=== PATIENT | male | born 1935 | race Caucasian/White ===

== ENCOUNTER 2017-03-30 18:47 | Emergency (ER) | payer MEDICARE ==
[2017-03-30] MEDS ORDERED: SULFAMETH/TRIMETH DS 800/160 MG TABLET PO STA (20:03)
[2017-03-30] MEDS ORDERED: SULFAMETH/TRIMETH DS 800/160 MG TABLET PO ONE ×2 (20:05→20:07)
== END 2017-03-30 20:16 | disposition home or self-care (01) ==
DX: L02.214 Cutaneous abscess of groin (principal)
CPT/HCPCS: 10060; 99283; A9270

== ENCOUNTER 2017-05-11 05:03 | Emergency (ER) | payer MEDICARE ==
[2017-05-11] MEDS ORDERED: FUROSEMIDE 40 MG/4 ML VIAL IVP STA (05:45)
--- NOTE | 2017-05-11 05:48 | ED Physician Documentation ---
PD HPI DYSPNEA - Stated complaint Stated Complaint: SHORTNESS OF BREATH - Chief complaint Chief Complaint: Resp - History obtained from History obtained from: Patient, Family - History of Present Illness Timing - onset: Last night Timing - onset during: Rest Timing - duration: Days (1) Timing - details: Gradual onset, Still present Inciting event(s): Other (has COPD and has had soa most of his life.) Improved by: Rest, Sitting up Worsened by: Exertion, Laying flat Associated symptoms: Bilateral edema (mild imprint to the sock). No: Fever, Cough, Hemoptysis, Wheezing, Chest pain / discomfort, Palpitations, Diaphoresis Similar symptoms before: Has not had sx before Recently seen: Not recently seen - Additional information Additional information: 81 y/o male with a history of COPD is generally non-compliant and does not see the doctor. He has developed shortness of breath and rapid heart rate and he notes that this is worse with laying down and he has had to sit up at the side of the bed at night to catch his breath. Review of Systems Constitutional: denies: Fever Eyes: denies: Decreased vision Ears: denies: Ear pain Nose: denies: Congestion Throat: denies: Sore throat Cardiac: reports: Palpitations, Pedal edema. denies: Chest pain / pressure, Calf pain Respiratory: reports: Dyspnea. denies: Cough, Wheezing GI: denies: Abdominal Pain, Nausea, Vomiting : denies: Dysuria, Frequency Skin: denies: Rash Musculoskeletal: denies: Neck pain, Back pain, Extremity pain Neurologic: denies: Generalized weakness, Focal weakness PD PAST MEDICAL HISTORY - Past Medical History Past Medical History: Yes Cardiovascular: None Endocrine/Autoimmune: None - Past Surgical History Past Surgical History: No - Present Medications Home Medications: Ambulatory Orders Medication Instructions Recorded Confirmed Furosemide [Lasix] 40 mg PO DAILY #20 tablet 05/11/17 - Allergies Allergies/Adverse Reactions: Allergies Allergy/AdvReac Type Severity Reaction Status Date / Time shellfish derived Allergy Anaphylaxis Verified 05/11/17 05:07 - Social History Does the pt smoke?: No Smoking Status: Never smoker Does the pt drink ETOH?: No Does the pt have substance abuse?: No - Immunizations Immunizations: TDAP >10years/unknown - POLST Patient has POLST: No PD ED PE NORMAL - Vitals Vital signs reviewed: Yes (tachy and hypertensive ) - General General: Alert and oriented X 3, No acute distress, Well developed/nourished - HEENT HEENT: Atraumatic, PERRL, EOMI - Neck Neck: Supple, no meningeal sign - Cardiac Cardiac: RRR, No murmur - Respiratory Respiratory: No respiratory distress, Other (end inspiratory crackles at the bases bilaterally ) - Abdomen Abdomen: Soft, Non tender - Back Back: No CVA TTP, No spinal TTP - Derm Derm: Normal color, Warm and dry, No rash - Extremities Extremities: No deformity, Other (edema is trace at best) - Neuro Neuro: No motor deficit, No sensory deficit - Psych Psych: Normal mood, Normal affect Results - Vitals Vitals: Vital Signs - 24 hr 05/11/17 05/11/17 05/11/17 05:07 05:27 05:56 Temperature 36.6 C Heart Rate 138 H 137 H 118 H Respiratory 21 21 20 Rate Blood Pressure 148/80 H 126/80 116/83 H O2 Saturation 95 94 94 05/11/17 05/11/17 06:29 06:55 Temperature Heart Rate 136 H 120 H Respiratory 13 25 H Rate Blood Pressure 139/87 H 117/65 O2 Saturation 97 96 Oxygen O2 Source Room air - EKG (time done) 0511 Rate: Rate (enter#) (137) Rhythm: Sinus tachycardia Intervals: Prolonged QT QRS: LVH Compare to prior EKG: Old EKG unavailable Computer interpretation: Agree with computer - Labs Labs: Laboratory Tests 05/11/17 05/11/17 05/11/17 05:20 05:20 05:20 WBC 6.3 RBC 4.51 L Hgb 14.6 Hct 43.8 MCV 97.1 H MCH 32.4 H MCHC 33.4 RDW 13.3 Plt Count 130 MPV 9.3 Neut # 4.4 Lymph # 1.3 L [place] # 0.6 Eos # 0.0 Baso # 0.0 Absolute Nucleated RBC 0.00 Nucleated RBCs 0.0 Sodium 139 Potassium 4.4 Chloride 104 Carbon Dioxide 27 Anion Gap 8.0 BUN 15 Creatinine 1.1 Estimated GFR (MDRD) 64 L Glucose 114 H Calcium 9.1 Total Bilirubin 2.2 H AST 39 ALT 58 Alkaline Phosphatase 52 Troponin I 0.05 B-Natriuretic Peptide Total Protein 6.5 L Albumin 4.2 Globulin 2.3 Albumin/Globulin Ratio 1.8 Lipase 18 L Urine Color Urine Clarity Urine pH Ur Specific [place] Urine Protein Urine Glucose (UA) Urine Ketones Urine Occult Blood Urine Nitrite Urine Bilirubin Urine Urobilinogen Ur Leukocyte Esterase Ur Microscopic Review Urine Culture Comments 05/11/17 05/11/17 05:20 06:14 WBC RBC Hgb Hct MCV MCH MCHC RDW Plt Count MPV Neut # Lymph # [place] # Eos # Baso # Absolute Nucleated RBC Nucleated RBCs Sodium Potassium Chloride Carbon Dioxide Anion Gap BUN Creatinine Estimated GFR (MDRD) Glucose Calcium Total Bilirubin AST ALT Alkaline Phosphatase Troponin I B-Natriuretic Peptide 515 H Total Protein Albumin Globulin Albumin/Globulin Ratio Lipase Urine Color YELLOW Urine Clarity CLEAR Urine pH 6.0 Ur Specific [place] 1.015 Urine Protein TRACE Urine Glucose (UA) NEGATIVE Urine Ketones NEGATIVE Urine Occult Blood NEGATIVE Urine Nitrite NEGATIVE Urine Bilirubin NEGATIVE Urine Urobilinogen 0.2 (NORMAL) Ur Leukocyte Esterase NEGATIVE Ur Microscopic Review NOT INDICATED Urine Culture Comments NOT INDICATED - Rads (name of study) 2 view chest Radiology: Prelim report reviewed (Impression: 1. No focal consolidation. 2. Mild cardiomegaly with pulmonary vascular congestion.), EMP read indepedently, See rad report Procedures - IVC sono (time) 0540 Bedside IVC sono: IVC measures (cm) (2.66), IVC collapsed c insp (cm) (2.52), High CVP, Fluid overload PD MEDICAL DECISION MAKING - ED course Complexity details: reviewed old records, reviewed results, re-evaluated patient , considered differential, d/w patient, d/w family ED course: 81 y/o non-compliant male with shortness of air has a plethoric IVC and rales on exam and he is given IV lasix. He has some diuressis and improvement in his dyspnea but remains tachy. IV diltiazem is ordered and he refuses. He is refusing hospitalization for new onset CHF. He does not have ischemic changes on his EKG and he is saturating well with no elevation in the trop. I suspect the failure is a result of untreated hypertension or simply the tachycardia. He insists on leaving AMA and he gives additional history that he has a reaction to diltiazem causing joint aches. I have asked him to consider an IV beta ayaan while he is here and he refuses this as well. Departure - Departure Disposition: Against Medical Advice Clinical Impression: Congestive heart failure Qualifiers: Congestive heart failure type: unspecified congestive heart failure type Congestive heart failure chronicity: acute Qualified Code(s): I50.9 - Heart failure, unspecified Condition: Fair Instructions: ED CHF General Follow-Up: Eugenia Maza ARNP [Primary Care Provider] - Prescriptions: Furosemide [Lasix] 40 mg PO DAILY #20 tablet Comments: Today it appears you have acute congestive heart failure and this is likely due the rapid heart rate and elevated blood pressure ongoing for too long. We have offered further treatment in the ED and hospitalization and you are refusing both. Follow up with your primary care doctor or return here if you worsen or decide you would like further treatment.
[2017-05-11] MEDS ORDERED: FUROSEMIDE 40 MG/4 ML VIAL ONE (05:50)
[2017-05-11 05:54] LABS: BASOPHILS % (AUTO) 0.2 %; EOSINOPHILS % (AUTO) 0.8 %; HCT - HEMATOCRIT 43.8 % (42.0-52.0); HGB - HEMOGLOBIN 14.6 g/dL (14.0-18.0); LYMPHOCYTES # (AUTO) 1.3 10^3/uL (1.5-3.5); MEAN CORPUSCULAR HEMOGLOBIN 32.4 pg (27.0-31.0); MEAN CORPUSCULAR HGB CONC 33.4 g/dL (32.0-36.0); MEAN CORPUSCULAR VOLUME 97.1 fL (80.0-94.0); MEAN PLATELET VOLUME 9.3 fL (7.4-11.4); MONOCYTES # (AUTO) 0.6 10^3/uL (0.0-1.0); MONOCYTES % (AUTO) 8.9 %; NEUTROPHILS # (AUTO) 4.4 10^3/uL (1.5-6.6); NEUTROPHILS % (AUTO) 70.1 %; RED BLOOD COUNT 4.51 10^6/uL (4.70-6.10); RED CELL DISTRIBUTION WIDTH 13.3 % (12.0-15.0); UNCORRECTED WHITE BLOOD COUNT 6.3 x10^3/uL; WHITE BLOOD COUNT 6.3 x10^3/uL (4.8-10.8)
[2017-05-11 06:12] LABS: ALBUMIN/GLOBULIN RATIO 1.8 (1.0-2.2); BILIRUBIN,TOTAL 2.2 mg/dL (0.2-1.0); CALCIUM 9.1 mg/dL (8.5-10.3); CREATININE 1.1 mg/dL (0.6-1.2); POTASSIUM 4.4 mmol/L (3.5-5.0); TOTAL PROTEIN 6.5 g/dL (6.7-8.2)
[2017-05-11 06:31] LABS: BILIRUBIN,URINE NEGATIVE (NEGATIVE)
[2017-05-11 06:39] LABS: UA CHARGE (STRIP ONLY) YES; UR CULTURE IF IND NOT INDICATED
--- NOTE | 2017-05-11 07:11 | XRAY Preliminary Report ---
Exam: XR Chest 2 View PA/LAT IMPRESSION: 1. No focal consolidation. 2. Mild cardiomegaly with pulmonary vascular congestion. [facility] SITE ID: [id number]
--- NOTE | 2017-05-11 07:14 | XRAY Report ---
EXAM: CHEST RADIOGRAPHY EXAM DATE: 05/11/2017 06:53 AM. CLINICAL HISTORY: Dyspnea, crackles . COMPARISON: Chest radiograph dated 10/18/2010. TECHNIQUE: 2 views. FINDINGS: Lungs/Pleura: No focal opacities evident. No pleural effusion. No pneumothorax. Normal volumes. Mediastinum: The heart is enlarged. The pulmonary vasculature is mildly indistinct. Other: None. IMPRESSION: 1. No focal consolidation. 2. Mild cardiomegaly with pulmonary vascular congestion. [facility] Referring Provider Line: [phone] SITE ID: [id number]
[2017-05-11] MEDS ORDERED: diltiaZEM INJ 5 MG/ML VIAL IVP STA (07:53)
[2017-05-11] MEDS ORDERED: diltiaZEM INJ 5 MG/ML VIAL ONE (08:00)
[2017-05-11 08:22] VITALS: BP 135/79
== END 2017-05-11 08:22 | disposition left against medical advice (07) ==
LOC: ED 05:03
DX: I50.9 Heart failure, unspecified (principal); J44.9 Chronic obstructive pulmonary disease, unspecified
CPT/HCPCS: 36415; 71020; 80053; 81001; 81003; 83690; 83880; 84484; 85025; 87086; 93005; 93010; 96374; 96375; 99285

== ENCOUNTER 2019-01-30 08:39 | Inpatient (IN) | payer MEDICARE ==
--- NOTE | 2019-01-30 09:47 | XRAY Report ---
Reason: short of air Procedure Date: 01/30/2019 Accession Number: [id number] / [id number] Procedure: XR - Chest 2 View X-Ray CPT Code: 50898 FULL RESULT: EXAM: CHEST RADIOGRAPHY EXAM DATE: 01/30/2019 09:29 AM. CLINICAL HISTORY: Short of air. COMPARISON: CHEST 2 VIEW PA/LAT 05/11/2017 6:22 AM. TECHNIQUE: 2 views. FINDINGS: Lungs/Pleura: No focal opacities evident. No pleural effusion. No pneumothorax. Normal volumes. Mediastinum: Cardiomegaly and mild calcification of the aortic arch, similar to 2017. Other: Unchanged appearance of a posterior paradiaphragmatic opacity, centrally lucent and approximately 4 cm in size and triangular in shape. Differential diagnosis includes paramediastinal mass, posterior diaphragmatic hernia and a pleural space process among others. IMPRESSION: Stable examination with no acute airspace disease. Stable posterior finding on the lateral radiograph. While this is not felt to be contributory to the patient's acute presentation, if clinically indicated this could be clarified on a routine basis by CT of the chest. [facility]
[2019-01-30] MEDS ORDERED: ALBUTEROL NEB 2.5 MG/3 ML INH STA ×2 (09:49→11:23)
[2019-01-30] MEDS ORDERED: METOPROLOL 5 MG/5 ML VIAL IVP STA (09:50)
[2019-01-30 10:22] LABS: BASOPHILS % (AUTO) 0.7 %; EOSINOPHILS % (AUTO) 0.4 %; HGB - HEMOGLOBIN 14.3 g/dL (14.0-18.0); LYMPHOCYTES # (AUTO) 0.7 10^3/uL (1.5-3.5); LYMPHOCYTES % (AUTO) 13.4 %; MEAN CORPUSCULAR HEMOGLOBIN 32.8 pg (27.0-31.0); MEAN CORPUSCULAR HGB CONC 33.7 g/dL (32.0-36.0); MEAN CORPUSCULAR VOLUME 97.3 fL (80.0-94.0); MEAN PLATELET VOLUME 9.4 fL (7.4-11.4); MONOCYTES # (AUTO) 0.5 10^3/uL (0.0-1.0); MONOCYTES % (AUTO) 9.6 %; NEUTROPHILS % (AUTO) 75.9 %; PLT - PLATELET COUNT 113 10^3/uL (130-450); RED BLOOD COUNT 4.37 10^6/uL (4.70-6.10); RED CELL DISTRIBUTION WIDTH 14.3 % (12.0-15.0); WHITE BLOOD COUNT 5.3 x10^3/uL (4.8-10.8)
[2019-01-30 10:28] LABS: ALBUMIN 4.6 g/dL (3.2-5.5); ALBUMIN/GLOBULIN RATIO 1.6 (1.0-2.2); BILIRUBIN,TOTAL 4.9 mg/dL (0.2-1.0); CREATININE 1.2 mg/dL (0.6-1.2); MAGNESIUM 2.1 mg/dL (1.7-2.8); TOTAL PROTEIN 7.4 g/dL (6.7-8.2)
[2019-01-30] MEDS ORDERED: FUROSEMIDE 40 MG/4 ML VIAL IVP STA (10:56)
[2019-01-30] MEDS ORDERED: PROCHLORPERAZINE 10 MG/2 ML VIAL IVP PRN (11:06)
[2019-01-30] MEDS ORDERED: MORPHINE 2 MG/ML CARPUJECT IVP PRN (11:06)
[2019-01-30] MEDS ORDERED: ACETAMINOPHEN 325 MG TABLET PO PRN (11:06)
--- NOTE | 2019-01-30 11:24 | ED Physician Documentation ---
PD HPI DYSPNEA - Stated complaint Stated Complaint: SOA - Chief complaint Chief Complaint: Resp - History obtained from History obtained from: Patient - History of Present Illness Timing - onset: How many months ago (1) Timing - onset during: Exertion Timing - duration: Months (1) Timing - details: Gradual onset, Still present (very dyspneic the past few days) Inciting event(s): No: URI (does have some cough chronically, and feeling wheezing. Also leg edema and orthopnea.) Improved by: Rest, Sitting up Worsened by: Exertion, Laying flat, Coughing Associated symptoms: Cough, Wheezing, Bilateral edema (for the past month). No: Fever Similar symptoms before: Has not had sx before (history of asthma but usually without MDi nor meds. No history of CAD/CHF) Recently seen: Not recently seen Review of Systems Constitutional: reports: Fatigue. denies: Fever, Chills, Myalgias Nose: denies: Rhinorrhea / runny nose, Congestion Throat: denies: Sore throat Cardiac: reports: Chest pain / pressure, Pedal edema. denies: Palpitations, Calf pain Respiratory: reports: Dyspnea, Cough, Wheezing GI: denies: Abdominal Pain, Nausea, Vomiting, Diarrhea Neurologic: reports: Generalized weakness. denies: Focal weakness, Numbness, Near syncope PD PAST MEDICAL HISTORY - Past Medical History Past Medical History: Yes Cardiovascular: None, Hypertension Respiratory: COPD Endocrine/Autoimmune: None - Past Surgical History Past Surgical History: No - Present Medications Home Medications: Ambulatory Orders Medication Instructions Recorded Confirmed Multivitamin [Multiple Vitamins] 1 each PO DAILY 01/30/19 01/30/19 - Allergies Allergies/Adverse Reactions: Allergies Allergy/AdvReac Type Severity Reaction Status Date / Time shellfish derived Allergy Anaphylaxis Verified 01/30/19 08:50 diltiazem AdvReac Cramps Verified 01/30/19 13:16 - Social History Does the pt smoke?: No Smoking Status: Never smoker Does the pt drink ETOH?: No Does the pt have substance abuse?: No - Immunizations Immunizations: TDAP >10years/unknown - POLST Patient has POLST: No PD ED PE NORMAL - Vitals Vital signs reviewed: Yes - General General: Alert and oriented X 3, Well developed/nourished - HEENT HEENT: Ears normal, Moist mucous membranes, Pharynx benign - Neck Neck: Supple, no meningeal sign, No adenopathy, Other (JVD at 45 degrees) - Cardiac Cardiac: RRR, No murmur - Respiratory Respiratory: Other (fine crackles at bases/ lower 1/3. Diffuse mild wheezing. No coarse sounds. ) - Abdomen Abdomen: Soft, Non tender, No organomegaly - Back Back: No CVA TTP - Derm Derm: Normal color, Warm and dry - Extremities Extremities: Normal ROM s pain, No calf tenderness / cord, Other (2+ edema in both legs.) - Neuro Neuro: Alert and oriented X 3, No motor deficit, Normal speech Results - Vitals Vitals: Vital Signs - 24 hr 01/30/19 01/30/19 01/30/19 08:45 08:59 10:04 Temperature 35.9 C L Heart Rate 80 94 82 Heart Rate [ Brachial] Respiratory 16 Rate Blood Pressure 138/107 H Blood Pressure [Left Brachial artery] Blood Pressure [Right Brachial artery] O2 Saturation 93 92 01/30/19 01/30/19 01/30/19 10:22 10:34 10:47 Temperature 36.6 C Heart Rate 75 73 Heart Rate [ Brachial] Respiratory 14 14 Rate Blood Pressure 144/99 H 112/71 115/70 Blood Pressure [Left Brachial artery] Blood Pressure [Right Brachial artery] O2 Saturation 99 96 01/30/19 01/30/19 12:11 16:16 Temperature 36.7 C 36.5 C Heart Rate Heart Rate [ 88 81 Brachial] Respiratory 20 20 Rate Blood Pressure Blood Pressure 107/64 [Left Brachial artery] Blood Pressure 122/74 [Right Brachial artery] O2 Saturation 98 96 Oxygen O2 Source Room air - EKG (time done) 10:08 Rate: Rate (enter#) (2) Rhythm: NSR [place]: Normal Intervals: Normal [place] QRS: LVH Ischemia: Normal ST segments, Non specific changes. No: ST elevation c/w ischemia - Labs Labs: Laboratory Tests 01/30/19 01/30/19 01/30/19 10:08 10:08 10:08 WBC 5.3 RBC 4.37 L Hgb 14.3 Hct 42.5 MCV 97.3 H MCH 32.8 H MCHC 33.7 RDW 14.3 Plt Count 113 L MPV 9.4 Neut # (Auto) 4.0 Lymph # (Auto) 0.7 L [place] # (Auto) 0.5 Eos # (Auto) 0.0 Baso # (Auto) 0.0 Absolute Nucleated RBC 0.00 Nucleated RBC % 0.0 Sodium 135 Potassium 5.1 H Chloride 98 L Carbon Dioxide 28 Anion Gap 9.0 BUN 14 Creatinine 1.2 Estimated GFR (MDRD) 58 L Glucose 112 H Calcium 9.0 Magnesium 2.1 Total Bilirubin 4.9 H AST 29 ALT 30 Alkaline Phosphatase 60 Troponin I 0.06 B-Natriuretic Peptide Total Protein 7.4 Albumin 4.6 Globulin 2.8 Albumin/Globulin Ratio 1.6 Lipase 22 01/30/19 01/30/19 10:08 16:00 WBC RBC Hgb Hct MCV MCH MCHC RDW Plt Count MPV Neut # (Auto) Lymph # (Auto) [place] # (Auto) Eos # (Auto) Baso # (Auto) Absolute Nucleated RBC Nucleated RBC % Sodium Potassium Chloride Carbon Dioxide Anion Gap BUN Creatinine Estimated GFR (MDRD) Glucose Calcium Magnesium Total Bilirubin AST ALT Alkaline Phosphatase Troponin I 0.06 B-Natriuretic Peptide 2012 H Total Protein Albumin Globulin Albumin/Globulin Ratio Lipase - Rads (name of study) chest xray Radiology: Prelim report reviewed, EMP read contemporaneously (no infiltrate, some vascular congestion), See rad report PD MEDICAL DECISION MAKING - ED course Complexity details: re-evaluated patient (improved with neb treatment somewhat but still with dyspnea. ), considered differential (seems some component of asthma with wheezing that responded to neb, but also CHF which is new onset and will need cardiac evaluation and diuresis, betas, etc.), d/w patient Departure - Departure Disposition: ED Place in Observation Clinical Impression: New onset of congestive heart failure Dyspnea Qualifiers: Dyspnea type: dyspnea on exertion Qualified Code(s): R06.09 - Other forms of dyspnea Asthma exacerbation Qualifiers: Asthma severity: mild Asthma persistence: intermittent Qualified Code(s): J45.21 - Mild intermittent asthma with (acute) exacerbation Condition: Stable Record reviewed to determine appropriate education?: Yes Discharge Date/Time: 01/30/19 11:50
[2019-01-30] MEDS: ENOXAPARIN 40 MG/0.4 ML SYRINGE SUBQ SCH (14:39)
[2019-01-30] MEDS: SODIUM CHLORIDE FLUSH 0.9% 10 ML SYRINGE IVP PRN ×2 (14:39→14:41)
[2019-01-30] MEDS: FUROSEMIDE 20 MG/2 ML VIAL IVP SCH (14:39)
--- NOTE | 2019-01-30 14:55 | HISTORY & PHYSICAL EXAMINATION ---
DATE OF SERVICE: 01/30/2019 Physician: Jordyn Tam MD HISTORY OF PRESENT ILLNESS: This is an 83-year-old white male with a history of asthma since childhood. He takes no daily prescription medications and denies any important past medical history. The patient came to this ER in 2017 for complaints of dyspnea on exertion, orthopnea, leg edema, was felt to have heart failure, given IV Lasix x1 and advised that he should be admitted for evaluation, but refused and left AMA. It is unclear if he had any cardiac testing within these last 2 years. His PCP just retired 2 months ago. He has not found a new PCP. He describes over the past 1 year has been "forcing fluids" because he thought he was dehydrated, after checking symptoms in a manual. In the last 2-3 weeks, he has noticed significant leg edema, dyspnea with exertion, severe orthopnea, a dry cough when he is supine and some "chest tightness" when he walks. He came to the emergency room with these complaints today, was found to have a saturation of 90% on room air as well as fine crackles and CHF by BNP test and chest x-ray, and is being placed in Observation for evaluation and management of new onset CHF, type unknown. He was given a nebulizer and iv Lasix i the ER, the nebulizer had minimal effect. He is diuresing already. PAST MEDICAL HISTORY: Asthma since childhood. ALLERGIES: SHELLFISH AND DILTIAZEM. MEDICATIONS: Multivitamin and calcium supplements. REVIEW OF SYSTEMS: He denies any fever, sputum congestion or nasal congestion. Pertinent positives are listed, the rest are negative. FAMILY HISTORY: Mother at age 35 of breast cancer with metastasis. Father at 79 of old age. He had 3 siblings, all who have , and he can only remember that his brother had a heart murmur and open heart surgery and was found on the floor of his house. SOCIAL HISTORY: The patient is from his second and lives alone. He had 2 children with his first and 1 with his second and they are all healthy. 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 He never smoked, drinks no alcohol, has never used illicit drugs. PHYSICAL EXAMINATION GENERAL: White male who appears younger than his age. VITAL SIGNS: Blood pressure initially in the ER was 170 systolic, but now is 115/70, heart rate 70s and 80s in sinus rhythm, O2 saturation is 99% on 2 liters nasal cannula, afebrile. 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 Oral mucosa is moist. NECK: Without JVD or carotid bruits. HEART: Bibasilar rales up entirely on both sides to the apices. Anterior chest has a scattered wheeze. CARDIOVASCULAR: Heart sounds are normal. 1-2/6 systolic murmur at apex. No S3 gallop or RV heave. ABDOMEN: Soft, nontender. No organomegaly. EXTREMITIES: Show 2+ edema to below the knees. There is no clubbing or cyanosis. NEUROLOGIC: Grossly intact. LABORATORY DATA: White count 5.3, hemoglobin 14, platelet count 113. Sodium 135, potassium 5.1, BUN 14, creatinine 1.2. BNP 2011 (in 2017 it was in the 500s, at that ER visit). First troponin is 0.06. Liver tests are normal. Lipase is normal. No INR was done. CHEST X-RAY: No pulmonary disease, but cardiomegaly is seen. EKG: Normal sinus rhythm, LVH with strain pattern. There is no old EKG for comparison. IMPRESSION/DIAGNOSES 1. Congestive heart failure, unclear if this is from untreated hypertension or a different etiology and unknown if it is systolic or diastolic failure. 2. Noncompliance with medical management in the past. 3. Asthma since childhood. 4. Hyperkalemia. 5. Chronic kidney disease. PLAN: Place the patient in Observation status, on telemetry watching for dysrhythmia. Cycle the troponins x3. Order a low salt, cardiac diet with fluid restriction. I discussed NOT drinking water as if he is flushing himself. Begin Lasix IV bid and follow I's and O's, daily weights. Obtain a magnesium level and follow Mg and his electrolytes with diuresis. Obtain an Echo to establish LV contractility and depending on the EF, addition of medications will start. The patient was told he will now need to find a PCP and also will need to take prescription medications when he is discharged. If the patient has positive cardiac enzymes, he will be made an inpatient and need an angio transfer. If he has no improvement after 24 hours, he will also be made an inpatient for further aggressive diuresis and medication adjustments. CODE STATUS: FULL CODE. DEEP VENOUS THROMBOSIS PROPHYLAXIS: Lovenox. ATTESTATION: The patient is expected to be discharged or transferred to another facility within 96 hours: Yes. TD: 01/30/2019 14:44 MTDD
[2019-01-30] MEDS: SODIUM CHLORIDE FLUSH 0.9% 10 ML SYRINGE IVP SCH ×2 (16:23→23:46)
--- NOTE | 2019-01-30 16:57 | ADVANCE CARE PLANNING NOTE ---
Advance Care Planning - Date/Time Date: 01/30/19 Time: 16:45 - Purpose of encounter Text: To determine patient's wishes regarding aggressiveness of medical care and Code wishes - Parties in attendance Parties in attendance: I spoke to patient sitting in chair in his room - Decisional capacity Decisional capacity of: He has full capacity - Subjective/Patient's story Subjective/Patient's story: He thought his fatigue was from dehydration, so he was drinking 1-2L of fluids a day for several months. Over the past 2 weeks he gets MERCEDES, severe orthopnea, a dry cough and audible wheezing when he lays flat and worse leg swelling. Getting iv Lasix has started a diuresis and he already has some improvement in his SOB. - Objective/Medical story Objective/Medical Story: He lives alone in a trailer. [place] He [place] 1 year ago and "does nothing all day." He says he has "no quality of life" due to fatigue and no hobbies. He was told he has HTN and never took meds for it. He came to this ER 2 years ago with similar symptoms, was in CHF and tachycardic, got Lasix and refused to be admitted. Over those 2 years he has had no cardiac testing. He is on no meds except a vitamin and calcium. His presentation today shows new onset of CHF. An Echo was just done (that he never had before), that shows 4-chamber severe dilatation and sever global LV hypokinesis, poor RV function, , AI, MR, TR and mild pulmonary HT> He will be moved to inpatient status from Observation, for diuresis (he is about 18 lbs over his usual weight), starting B-ayaan, WILTON, Spironolactone, and ASA. - Goals of Care Goals of care determinations: Comfortable existence, being able to breath. No aggressive treatment like open heart surgery, or defibrillator, or undergoing an angio. DNR/DNI desired. - Plan Plan: He will sign a POLST. DNR and medical management will be written. - Time Spent on Advance Care Planning Time spent on advance care plannin
[2019-01-30] MEDS ORDERED: LIDOCAINE 2% URO-JET 5 ML SYRINGE UR ONE (17:19)
[2019-01-30] MEDS: FAMOTIDINE 20 MG TABLET PO SCH (20:34)
[2019-01-30] MEDS: CARVEDILOL 3.125 MG TABLET PO SCH (20:34)
[2019-01-31 05:38] LABS: CALCIUM 8.9 mg/dL (8.5-10.3)
[2019-01-31 05:41] LABS: CREATININE 1.5 mg/dL (0.6-1.2); MAGNESIUM 2.1 mg/dL (1.7-2.8)
[2019-01-31] MEDS: SODIUM CHLORIDE FLUSH 0.9% 10 ML SYRINGE IVP PRN (05:59)
[2019-01-31] MEDS: FUROSEMIDE 20 MG/2 ML VIAL IVP SCH (05:59)
[2019-01-31] MEDS: CARVEDILOL 3.125 MG TABLET PO SCH (08:55)
[2019-01-31] MEDS: ENOXAPARIN 40 MG/0.4 ML SYRINGE SUBQ SCH (08:55)
[2019-01-31] MEDS: FAMOTIDINE 20 MG TABLET PO SCH (08:55)
[2019-01-31] MEDS ORDERED: SPIRONOLACTONE 25 MG TABLET PO SCH (09:00)
[2019-01-31] MEDS ORDERED: LISINOPRIL 5 MG TABLET PO SCH (09:00)
[2019-01-31] MEDS ORDERED: ASPIRIN EC 81 MG TABLET PO SCH (09:00)
[2019-01-31] MEDS ORDERED: POLYETHYLENE GLYCOL 3350 17 GM PACKET PO SCH (09:00)
[2019-01-31 10:26] VITALS: BP 111/63
[2019-01-31] MEDS ORDERED: FUROSEMIDE 40 MG TABLET PO SCH (11:00)
[2019-01-31] MEDS ORDERED: APIXABAN 2.5 MG TABLET PO SCH (11:00)
--- NOTE | 2019-01-31 11:07 | DISCHARGE SUMMARY ---
"Discharge Summary Admit Date: 01/30/19 Discharge Date: 01/31/19 Discharging Provider: Dr. Kevin Primary Care Provider: None Code Status: Do Not Attempt Resuscitation Condition at Discharge: Fair Discharge Disposition: 01 Home, Self Care - DIAGNOSES Admission Diagnoses: 1. Acute CHF new onset with associated SOB and leg edema. 2. Hyperkalemia 3. CKD stage 2 4. Noncompliance with medical mgmt 5. Hx childhood asthma Discharge Diagnoses with Status of Each Condition: 1. 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 2. Valvular disease (mod-severe MR/AR/AVS) sec to #1 and long-standing HTN 3. PAF with a chadsvasc of 4pts, on eliquis now 4. HTN 5. Hyperkalemia; resolved 6. BRINDA on CKD stage 2 sec to diuretics 7. Thrombocytopenia 8. Advance Care Planning 9. Medical noncompliance - HPI History of Present Illness: This is a 83 y/o white male wit hx of childhood asthma, who does not have a PCP, questionable HTN, for which he takes no meds, came in ED in 2017 for c/o MERCEDES, orthopnea, leg edema, was felt to be HF at that time medically managed and given lasix and advised on evaluation as outpatient, but refused and left AMA. His PCP justed retired 2 months ago, and unclear if he has had a complete cardiological evaluation in past. Patient presented with 90% pox, cxr showed CHF corresponding to crackles to bilateral lobes, markedly elevated BNP>2k, cr 1.2 w/ hx CKD stage 2 by labs taken in [facility], was drinking approximaely 2L of water since he though he was dehydrated. Has a productive cough of white sputum denies smoking, and weight gain have been noticed. Given Lasix, nebs, and stabilized in ED. - CONSULTS | PROCEDURES Consultations: Palliative care consult. Tanya Cortes Procedures: ECHO shows valvular heart disease with global DCM with EF<20% - HOSPITAL COURSE Hospital Course: Patient was admitted for new onset Congestive DCM with global involvement of chambers with associated moderate to severe MR, moderate AVS/AR, and Diastolic Dysfunction grade 2 by criteria. RSVP showed 61 mm Hg, was clinically in hypervolemic, was diuresed with Lasix 20 mg IV BID, placed on coreg low dose and titrated to optimize med mgmt at 6.25 mg po bid, started on lisinopril 5 mg po daily, as well as Aldactone 25 mg po daily. Patient meets criteria for palliative care consultation for advanced HF which appears to be old but newly diagnosed. Patient had good UO and with approximately >2L diuresed while hospitalized. Patient was initially with mild hypoxia but did not require oxygenation but patient stated it did help in ED. RT to eval for home oxygen use, and will need PCP referral to cardiology for eval on possible ICD therapy vs CRUCIBLE FURNACE TENDER tx depending on whether patient fails medical management for 2-3 months while on coreg, ARNI/WILTON-inh, lasix. Patient did develop several minutes of controlled rate afib, new onset likely PAF, CHADSVAsc score of 4 points with a 4.6% stroke per year risk assessed. Patient had advanced HF education and counseling as well as advanced care planning done, and will have a palliative care consult for symptoms management, goal of care, disease burden as well traj ectory of illness assessed. - ALLERGIES Allergies/Adverse Reactions: Allergies Allergy/AdvReac Type Severity Reaction Status Date / Time shellfish derived Allergy Anaphylaxis Verified 01/30/19 08:50 diltiazem AdvReac Cramps Verified 01/30/19 13:16 - MEDICATIONS Home Medications: Ambulatory Orders Medication Instructions Recorded Confirmed Multivitamin [Multiple Vitamins] 1 each PO DAILY 01/30/19 01/30/19 Apixaban [Eliquis] 2.5 mg PO BID #60 tablet 01/31/19 Carvedilol [Coreg] 6.25 mg PO BID #60 tablet 01/31/19 Furosemide [Lasix] 40 mg PO DAILY #30 tablet 01/31/19 Lisinopril [Zestril] 5 mg PO DAILY #30 tablet 01/31/19 Spironolactone [Aldactone] 25 mg PO DAILY #30 tablet 01/31/19 - PHYSICAL EXAM AT DISCHARGE General Appearance: positive: No acute distress Eyes Bilateral: positive: Normal inspection, PERRL, EOMI ENT: positive: ENT inspection nml, Pharynx nml, No signs of dehydration Neck: positive: Nml inspection, Thyroid nml, No JVD, Trachea midline. negative: Carotid bruit Respiratory: positive: Chest non-tender, No respiratory distress, Breath sounds nml, Rales (faint scattered ), Rhonchi (bilateral ). negative: Wheezes Cardiovascular: positive: Regular rate & rhythm, Systolic murmur, Diastolic murmur, Gallop/S4. negative: Irregularly irregular, JVD present, Friction rub, Decreased pulse(s) Peripheral Pulses: positive: 1+ Abdomen: positive: Non-tender, No organomegaly, Nml bowel sounds, No distention Skin: positive: Color nml, No rash, Warm, Dry Extremities: positive: Non-tender, Full ROM, Other (2+ pitting edema to mid calf bilaterally ) Neurologic/Psychiatric: positive: Oriented x3, CN's nml (2-12) - LABS Result Diagrams: 01/30/19 10:08 01/31/19 05:14 - DIAGNOSTIC IMAGING Diagnostic Imaging Results: Final report reviewed - QUALITY (Female Hip Fx Only) Was patient sent home on osteoporosis medication?: No - FOLLOW UP Follow Up: follow up with PCP in 1-2 weeks will need a cardiology referral in 2-3 weeks - TIME SPENT Time Spent in Discharge (Minutes): 35"
[2019-01-31] MEDS: SODIUM CHLORIDE FLUSH 0.9% 10 ML SYRINGE IVP SCH (11:24)
--- NOTE | 2019-01-31 11:36 | Discharge Plan ---
Discharge Plan Disposition: 01 Home, Self Care Condition: Fair Prescriptions: Apixaban [Eliquis] 2.5 mg PO BID #60 tablet Carvedilol [Coreg] 6.25 mg PO BID #60 tablet Furosemide [Lasix] 40 mg PO DAILY #30 tablet Lisinopril [Zestril] 5 mg PO DAILY #30 tablet Spironolactone [Aldactone] 25 mg PO DAILY #30 tablet Diet: Cardiac Shower Restrictions: No Driving Restrictions: No Weight Bearing: Full Weight Instruction Topics: Apixaban oral tablets, Carvedilol tablets, Lisinopril tablets, Furosemide tablets, Spironolactone tablets, Heart Failure Meds Control, Heart Failure, Heart Failure Warning Signs, Heart Failure Tracking Weight, Heart Failure Diet Changes, ED Edema Legs Bilateral Additional Instructions or Follow Up instructions: Patient has been given CHF information and to monitor weight as well as fluid restriction to 1500 ml/24 hr period of free water to avoid hypervolemic state associated with his congestive DCM and combined systolic/diastolic CHF. Patient has been advised on medical compliance as well as to keep all appointments and take all po meds as rx'ed. Surrogate decision maker []. Patient/Family understanding of the illness []. Information preferences []. Most important goals []. Patient/Family concerns []. Family conference []. Will have pt follow up with PCP for further care or return if pt worsens. Pt comfortable with plan. Cardiology to be seen in 2-3 weeks PLEASE REFER TO THE DISCHARGE MEDICATION LIST. [facility]-Up Care: [facility], [facility] (in 1-2 weeks) No Smoking: If you smoke, Please STOP! Call for help. Follow-up with: Eugenia Maza ARNP [Primary Care Provider] - 1 Week (Will reassign to new PCP as existing has retired. )
--- NOTE | 2019-01-31 15:58 | CONSULTATION NOTE ---
Palliative Care Consultation - Referral Referring Provider: Dr. Chon Kevin Time of Visit: [id number] Referral setting: Hospitalized patient Referral Reason: New diagnosis of congestive dilated cardiolmyopathy - Information Sources Records reviewed: Previous records reviewed History/Review of Systems obtained from: Patient Exam limitations: No limitations - History of Present Illness Brief History of Present Illness: This is an 83-year-old gentleman who presented to the ED, with increased shortness of breath. He attributed this to a history of asthma. Patient is quite distrustful of the medical system, has not followed through on receiving regular medical care, had lost chayito in the medical community because of previous experiences. Reports he presented because "he could not get enough air", now has been diagnosed with acute new diagnosis of congestive dilated cardiomyopathy with an ejection fraction of left 20-20% with global involvement and valvular disease with moderate to severe MR/AR/AVS. Patient has only moderate understanding of his disease process though he does understand he has a shortened life expectancy, and is committed to "taking his pills" and doing what is needed in follow up. He did have an episode of atrial fib, does sound like this is been something he has had in the past as they have had him on diltiazem. His perception is a diltiazem made him lose all his teeth and his joints ache significantly. Patient does not perceive his current quality of life is acceptable, and exploring this further has more to do with depression and no longer having a sense of "purpose". He is willing though, given his positive experience here [facility], to give the medical system another try as well as engage actively in his medical treatment plan. Medical/Surgical History - Past Medical History Cardiovascular: reports: Congestive heart failure, Hypertension, Atrial fibrillation, Valve disorder Respiratory: reports: COPD Neuro: None Endocrine/Autoimmune: reports: None GI: reports: None Psych: reports: Depression Musculoskeletal: reports: Fatigue Derm: reports: None MRSA Hx?: No - Substance History Use: Uses substance without health or social issues: NONE Social History - Living Situation Living arrangement: At home Living Situation: Alone Support System: [place] from his son and their three children. On limited income. Has been twice, he has three children; 2 daughters from first marriage; stepchildren and son from second. 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 He has been on his own since 13, left home to escape poverty. Family History - Family History Family History: Mother: , Cancer ( when he was teenager), Father: , Brother: , CAD (had heart surgery) Medications/Allergies - Medications Active Medication List: Multivitamin [Multiple Vitamins] 1 each PO DAILY 01/30/19 - Allergies Allergies/Adverse Reactions: Allergies Allergy/AdvReac Type Severity Reaction Status Date / Time shellfish derived Allergy Anaphylaxis Verified 01/30/19 08:50 diltiazem AdvReac Cramps Verified 01/30/19 13:16 Review of Systems - Constitutional Constitutional: reports: Fatigue, Weight gain (with fluid retention). denies: Fever, Chills - Eyes Eyes: reports: Vision loss - Ears, Nose & Throat Ears, Nose & Throat: reports: Dry mouth - Cardiovascular Cardiovascular: reports: Edema, Lightheadedness, Exertional dyspnea, Decr. exercise tolerance. denies: Chest pain - Respiratory Respiratory: reports: SOB at rest (improved), SOB with exertion - Gastrointestinal Gastrointestinal: reports: Good appetite - Musculoskeletal Musculoskeletal: reports: Stiffness, Muscle weakness, Other (increased difficulty with walking with LE edema) - Integumentary Integumentary: reports: Dryness - Neurological Neurological: reports: General weakness - Psychiatric Psychiatric: reports: Depression - Endocrine Endocrine: reports: Intolerance to cold - All Other Systems All Other Systems: reports: Reviewed and negative Physical Exam - Vital Signs Vital Signs: Vital Signs x48h Temp Pulse Pulse Resp BP Pulse Ox 01/31/19 11:46 99 01/31/19 09:00 36.8 C 74 18 111/63 94 - Physical Exam General Appearance: positive: No acute distress Eyes Bilateral: positive: Normal inspection ENT: positive: No signs of dehydration Neck: positive: No JVD, Trachea midline Cardiovascular: positive: Regular rate & rhythm Respiratory: positive: Rales (crackles LLL), Other (breathless with conversation) Abdomen: positive: Soft Skin: positive: Pallor, Dryness Extremities: positive: Pedal edema (up to knees; reports previous to admit had been up to thighs) Neurologic/Psychiatric: positive: Oriented x3, Weakness, Depressed mood/affect, Flat affect Palliative Care - POLST Patient has POLST: Yes POLST Status: DNR, Selective Treatment Pain: No pain Tiredness/Fatigue: Severe (7-10) Feelings of wellbeing/Perceived Quality of Life: Fair, Worsening - Palliative Care Discussion: Explored patient's understanding of illness, does have limited understanding but does recognize needs to follow through on treatment plan given the severity of his illness. He reports he is not afraid of dying, that he is lived a good life, but does feel like this would hurt his family. Asked him if he had shared with his son what was going on, he reports his son thinks he is immortal and doesn't want to talk about it. Did discuss in the context of this though he does need his surrogate decision-maker, he would pick his son, as his daughters are less available. We did discuss in the context of [facility] we would need to participate if there is serious health care decision to make that he was not able to participate in, provided him with 2 separate forms for regarding this, and reviewed goals of care. Patient did fill out a JEAN ST with Dr. Tam, The decision for DNA R and comfort focused treatment. I expect given if patient to pursue further treatment plan and options, this may need to be revisited and revised to selected treatment. Patient at this point in time is to give medical treatment try, did reinforce the need to follow-up with a PCP and manager marketing communications to maximize benefit of options. Explored further patient's expression of lack of "purpose", patient has had a very interesting life. He has long-term been committed to helping others, homeless, and supporting other persons on the fringe. 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 Patient denies any suicidal ideation, is hoping if he can feel better, will feel better emotionally as well.Counseling provided regarding the role of palliative care, helping to navigate some of these decisions and weighing benefits and burdens moving forward in the context of his definition of quality of life. He reports he just wants to donate his body to science when his time comes, discussed there needs to be more preparation and paperwork to be able to follow through on this. Results - Lab Results Lab results reviewed: Yes Fish Bones: 01/30/19 10:08 01/31/19 05:14 Lab and Imaging Results: Lab Results x24hrs 01/31/19 01/31/19 01/30/19 Range/Units 05:14 05:14 22:05 Sodium 138 (135-145) mmol/L Potassium 4.3 (3.5-5.0) mmol/L Chloride 100 L (101-111) mmol/L Carbon Dioxide 26 (21-32) mmol/L Anion Gap 12.0 (6-13) BUN 24 H (6-20) mg/dL Creatinine 1.5 H (0.6-1.2) mg/dL Estimated GFR (MDRD) 45 L (>89) Glucose 131 H (70-100) mg/dL Calcium 8.9 (8.5-10.3) mg/dL Magnesium 2.1 (1.7-2.8) mg/dL Troponin I 0.06 (<0.49) ng/mL B-Natriuretic Peptide 2024 H (5-100) pg/mL 01/30/19 Range/Units 16:00 Sodium (135-145) mmol/L Potassium (3.5-5.0) mmol/L Chloride (101-111) mmol/L Carbon Dioxide (21-32) mmol/L Anion Gap (6-13) BUN (6-20) mg/dL Creatinine (0.6-1.2) mg/dL Estimated GFR (MDRD) (>89) Glucose (70-100) mg/dL Calcium (8.5-10.3) mg/dL Magnesium (1.7-2.8) mg/dL Troponin I 0.06 (<0.49) ng/mL B-Natriuretic Peptide (5-100) pg/mL Impression and Recommendations - Palliative Care Impression: This is an 83-year-old gentleman who is not sought medical care for multiple years, secondary to distrust of the medical system. He now presents acutely with a new diagnosis of congestive dilated cardiomyopathy with an ejection fraction less than 20%, has been started on multiple new medications, and is feeling somewhat overwhelmed with understanding his current disease process. Patient professes would like to engage in active treatment plan, is hoping for improvement quality of life as well as quantity of life as he does understand he has a serious illness and unknown but poor prognosis. Palliative care providing support regarding defining goals of care, engaging in treatment plan to promote adherence, and providing anticipatory guidance. Recommendations/Counseling Done: 1.New diagnosis of congestive heart failure. Counseling provided regarding understanding of new diagnosis, seriousness of illness, encouraging engagement with treatment plan. This includes follow-up with PCP, rationale for cardiology, and weighing decisions in the context of his goals of care. Counseling provided regarding management of symptoms including dyspnea and fatigue, in the context of managing his CHF would expect improvement. Patient's goal is to "not feel sick". 2. Depression. Counseling provided regarding patient's expressions of hopelessness and loss of purpose. Patient has had a long life of service, now feels somewhat worthless regarding this. Initiated conversations and ways to engage and address some of these feelings. Screen for suicidal ideation. Recommendations include revisit screening for depression, patient may benefit from antidepressant, would follow-up after symptoms maximally managed of dyspnea and fatigue. 3. Advanced care planning. Patient has made the decision to be a DNA R, has completed a JEAN ST. Counseling provided regarding the role of the health proxy, provided forms and direction regarding completing this. Patient's goals including maximizing quality and quantity of life, though does feel at peace regarding discussing end of life. Seen provided regarding the role of palliative care, contact information as well as recommendation for further follow-up when after establishing with PCP to finish and complete healthcare proxy, revisit and clarify JEAN ST, as well as plan for end of life per his wishes. Will follow up after discharge, patient wishes assistance in pursuing referral. Time Spent: 60 minutes with greater than 50% of this done in counseling, establishing rapport, exploring goals of care, disease education and anticipatory guidance
[2019-01-31 17:43] LABS: CHOL/HDL RATIO 4.5 (<5.0); CHOLESTEROL 103 mg/dL; HDL CHOLESTEROL 23 mg/dL; LDL CHOLESTEROL,CALCULATED 59 mg/dL; LDL/HDL RATIO 2.6 (<3.6); VLDL CHOLESTEROL 21 mg/dL
[2019-01-31] MEDS ORDERED: CARVEDILOL 3.125 MG TABLET PO SCH (21:00)
== END 2019-01-31 15:07 | disposition home or self-care (01) | DRG 291 ==
LOC: ED 08:39 → OBS 11:06 → OBSVTOIN 16:50 → MS3 17:30
PROVIDERS: ADMIT Internal Medicine; ATTEND Internal Medicine
DX: I13.0 Hypertensive heart and chronic kidney disease with heart failure and stage 1 through stage 4 chronic kidney disease, or unspecified chronic kidney disease (principal); N18.9 Chronic kidney disease, unspecified; I50.9 Heart failure, unspecified; I50.41 Acute combined systolic (congestive) and diastolic (congestive) heart failure; N17.9 Acute kidney failure, unspecified; T50.2X5A Adverse effect of carbonic-anhydrase inhibitors, benzothiadiazides and other diuretics, initial encounter; I48.0 Paroxysmal atrial fibrillation; E87.5 Hyperkalemia; N18.2 Chronic kidney disease, stage 2 (mild); I08.3 Combined rheumatic disorders of mitral, aortic and tricuspid valves; D69.6 Thrombocytopenia, unspecified; J45.909 Unspecified asthma, uncomplicated; I27.20 Pulmonary hypertension, unspecified; F32.9 Major depressive disorder, single episode, unspecified; Z66 Do not resuscitate; Z51.5 Encounter for palliative care; Z91.19 Patient's noncompliance with other medical treatment and regimen
CPT/HCPCS: 36415; 71046; 80048; 80053; 80061; 83690; 83735; 83880; 84484; 85025; 93005; 93306; 94640; 94761; 96372; 96374; 96375; 96376; 99222; 99283; 99284; A9270; G0378; J1650; 83721

== ENCOUNTER 2019-02-06 10:46 | Outpatient (CLI) | payer MEDICARE | END 2019-02-06 10:47 | disposition short-term general hospital (02) | LOC: EMS 10:46 | PROVIDERS: ATTEND Surgery | DX: R06.00 Dyspnea, unspecified (principal); R63.0 Anorexia; R60.0 Localized edema | CPT/HCPCS: A0425; A0427 ==

== ENCOUNTER 2019-03-22 13:17 | Outpatient (CLI) | payer MEDICARE ==
[2019-03-22 17:44] LABS: HGB - HEMOGLOBIN 15.4 g/dL (14.0-18.0); MEAN CORPUSCULAR HEMOGLOBIN 31.6 pg (27.0-31.0); MEAN CORPUSCULAR HGB CONC 33.3 g/dL (32.0-36.0); MEAN PLATELET VOLUME 9.7 fL (7.4-11.4); RED BLOOD COUNT 4.86 10^6/uL (4.70-6.10); RED CELL DISTRIBUTION WIDTH 13.9 % (12.0-15.0)
[2019-03-22 18:43] LABS: CALCIUM 9.3 mg/dL (8.5-10.3)
[2019-03-22 18:59] LABS: CREATININE 1.4 mg/dL (0.6-1.2)
== END 2019-03-22 13:18 | disposition home or self-care (01) ==
LOC: LAB.F 13:17
PROVIDERS: ATTEND Nurse Practitioner Family
DX: I50.9 Heart failure, unspecified (principal)
CPT/HCPCS: 36415; 80048; 83880; 85027

== ENCOUNTER 2019-03-27 08:00 | Outpatient (CLI) | payer MEDICARE | END 2019-03-27 23:59 | disposition home or self-care (01) | LOC: LAB.S 08:00 | PROVIDERS: ATTEND Nurse Practitioner Family | DX: E87.5 Hyperkalemia (principal) | CPT/HCPCS: 36415; 84132 ==

== ENCOUNTER 2020-01-12 15:24 | Outpatient (CLI) | payer MEDICARE | END 2020-01-12 15:25 | disposition hospice, inpatient (51) | LOC: EMS 15:24 | PROVIDERS: ATTEND Surgery | DX: R06.02 Shortness of breath (principal); Z99.81 Dependence on supplemental oxygen | CPT/HCPCS: A0425; A0428 ==

== ENCOUNTER 2020-01-20 16:20 | Outpatient (CLI) | payer MEDICARE | END 2020-01-20 16:21 | disposition critical access hospital (66) | LOC: EMS 16:20 | PROVIDERS: ATTEND Surgery | DX: S61.512A Laceration without foreign body of left wrist, initial encounter (principal); W45.8XXA Other foreign body or object entering through skin, initial encounter; Y92.098 Other place in other non-institutional residence as the place of occurrence of the external cause | CPT/HCPCS: A0425; A0427 ==

== ENCOUNTER 2020-01-20 16:50 | Inpatient (IN) | payer MEDICARE, OTHER ==
[2020-01-20] MEDS ORDERED: BUFFERED LIDOCAINE 10 ML SYRINGE SUBQ STA (16:58)
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
--- NOTE | 2020-01-20 18:29 | ED Physician Documentation ---
PD HPI UPPER EXT INJURY - Stated complaint Stated Complaint: STAB WOUND TO THIGH - Chief complaint Chief Complaint: Laceration - History obtained from History obtained from: Patient - History of Present Illness Location: Left, Wrist Type of injury: Laceration Where injury occurred: Home Timing - onset: Today Timing - duration: Hours Timing - details: Abrupt onset Improved by: Rest Worsened by: Moving Associated symptoms: Weakness Similar symptoms before: Has not had sx before Recently seen: Other - Additonal information Additional information: 84-year-old male who is on hospice for terminal congestive heart failure has recently been cared for at [facility] where he became suicidal and was discharged from their facility. He had to go back to his trailer which is an inadequate place for him to be and today he was found inside in a pool of blood after having cut his left wrist. He did this in an attempt to take his own life. The patient is now brought to the hospital with a tourniquet on his left forearm. There was initial Harris some thought that he may have stabbed himself in the leg the patient denies this and there is a lot of blood everywhere and his leg is cleaned up there is no evidence of a wound there. The hospice doctor Dr. Nicole has contacted me specifically with instructions about the care for this patient. Th apparently will have some difficulty with fluids and in the field he was administered 2 L of saline. This was secondary to a absence of a blood pressure. Dr. Nicole recommends no specific diagnostic maneuvers. He indicates that he will need to go into a general inpatient bed on hospice. Review of Systems Constitutional: denies: Fever Ears: denies: Ear pain Nose: denies: Congestion Throat: denies: Sore throat Respiratory: reports: Dyspnea Skin: reports: Laceration (s) PD PAST MEDICAL HISTORY - Past Medical History Cardiovascular: Congestive heart failure, Hypertension, Atrial fibrillation, Valve disorder Respiratory: COPD Neuro: None Endocrine/Autoimmune: None GI: None : Incontinence Psych: Depression Musculoskeletal: Fatigue Derm: None - Past Surgical History Past Surgical History: No - Present Medications Home Medications: Ambulatory Orders Medication Instructions Recorded Confirmed Multivitamin [Multiple Vitamins] 1 each PO DAILY 01/30/19 01/30/19 Apixaban [Eliquis] 2.5 mg PO BID #60 tablet 01/31/19 Furosemide [Lasix] 40 mg PO DAILY #30 tablet 01/31/19 Spironolactone [Aldactone] 25 mg PO DAILY #30 tablet 01/31/19 carvediloL [Coreg] 6.25 mg PO BID #60 tablet 01/31/19 lisinopriL [Zestril] 5 mg PO DAILY #30 tablet 01/31/19 - Allergies Allergies/Adverse Reactions: Allergies Allergy/AdvReac Type Severity Reaction Status Date / Time shellfish derived Allergy Anaphylaxis Verified 01/20/20 17:21 diltiazem AdvReac Cramps Verified 01/20/20 17:21 - Social History Does the pt smoke?: No Smoking Status: Never smoker Does the pt drink ETOH?: No Does the pt have substance abuse?: No - Immunizations Immunizations: TDAP >10years/unknown - POLST Patient has POLST: Yes PD ED PE NORMAL - Vitals Vital signs reviewed: Yes (mild hypotension) - General General: Alert and oriented X 3, No acute distress, Well developed/nourished - HEENT HEENT: Atraumatic, PERRL, EOMI - Neck Neck: Supple, no meningeal sign - Respiratory Respiratory: No respiratory distress - Extremities Extremities: Other (There is a deep laceration to the left wrist with some maceration of tissue and a throbbing vessle with bleeding. The laceration is 6cm and does not penetrate to the tendons or the major arteries. There is a small atery in the middle of the laceration that is lacerated and spasmed shut. ) - Neuro Neuro: Alert and oriented X 3, guest relations receptionist 2-12 intact, No motor deficit, No sensory deficit, Normal speech Eye Opening: Spontaneous Motor: Obeys Commands Verbal: Oriented GCS Score: 15 - Psych Psych: Normal mood, Normal affect Results - Vitals Vitals: Vital Signs - 24 hr 01/20/20 17:15 Temperature 36.7 C Heart Rate 75 Respiratory 16 Rate Blood Pressure 93/58 L O2 Saturation 99 Oxygen O2 Source Room air Procedures - Laceration (location) left wrist Length in cm: 6 Wound type: Linear Neurovascular status: Sensory intact, Motor intact, Vascular intact Tendon involvement: Tendon intact Anesthesia: Lidocaine 1%, With bicarb Wound Preparation: Hibiclens, Irrigated copiously NS, Wound explored, To the base Deep layer closure: Vicryl, size #-0 - enter number (5-0), # sutures - enter number (1), Other (tied off that vessle in the mid field with good hemostasis) Skin layer closure: Nylon, Interrupted (horizontal matress suture), Size #-0 - enter number (4-0) Other: Patient tolerated well, No complications, Neurovascular intact, Dressing applied Complexity: Simple PD MEDICAL DECISION MAKING - ED course Complexity details: reviewed old records, reviewed results, re-evaluated patient, considered differential, d/w patient ED course: 84-year-old male with end-stage CHF on hospice has had a near experience today. He was hypotensive and unresponsive at the scene he was given fluids and resuscitated and he is now talking to us, makes sense. He is still on hospice and will need to go to a general inpatient bed to await placement. The laceration to his left wrist is repaired with suturing. He tolerates this well. Departure - Departure Disposition: ED Place in Observation Clinical Impression: Injury due to suicide attempt Congestive heart failure Qualifiers: Heart failure type: unspecified Heart failure chronicity: chronic Qualified Code(s): I50.9 - Heart failure, unspecified Laceration of wrist, left Qualifiers: Encounter type: initial encounter Qualified Code(s): S61.512A - Laceration without foreign body of left wrist, initial encounter
--- NOTE | 2020-01-20 19:18 | HISTORY & PHYSICAL EXAMINATION ---
Chief Complaint - Chief Complaint Chief Complaint: suicide attempt, wrist injury with a knife History of Present Illness - Admitted From Admitted From:: ED - History Obtained From Records Reviewed: yes History obtained from: patient, family, records review Exam Limitations: AMS, blood loss - History of Present Illness HPI Comment/Other: Heriberto Alicea is a 84-year-old white male with a past medical history of asthma, CKD, HFrEF, medical noncompliance and a current Hospice patient under the care of Dr. Nicole. He was recently sent to [facility] for Hospice care, but became suicidal and was discharged from their facility. He was sent back to his trailer which is an inadequate place for him to be as there is no running water. The patients son, Fredrick and [id number], Tracie live across the street from the patient. Fredrick states that he last checked on his father around 11AM, and came back around 3PM when he found his father in a recliner, which surprised him as the patient has not been able to walk that far lately. He notes that he thinks his father was so determined to end his life that, that is the only physical way he could imagine his dad making it that far. When Fredrick reached the chair which was facing away from the front door, he states there was blood every where. The blood had pooled in his lap and was coagulating into a jell. He states it was difficult to see where his father was bleeding from, so he began to hold pressure on both is left wrist and his thigh after calling 911. Upon arrival to the ED, the patient had a tourniquet on his left forearm. There was initially some thought that he may have stabbed himself in the leg, but after further examination, all skin was intact. Dr. Nicole called me directly for a [facility] admission, so the patient has been admitted. History - Past Medical History Cardiovascular: reports: Congestive heart failure, Hypertension, Atrial fibrillation, Valve disorder Respiratory: reports: COPD Neuro: reports: Dementia, Headaches Endocrine/Autoimmune: reports: None GI: reports: GERD VISITOR SERVICES ASSOCIATE: reports: None : reports: Benign prostate hypertrophy, Incontinence HEENT: reports: Chronic vision loss, Chronic sinusitis, Chronic hearing loss Psych: reports: Depression, Anxiety Musculoskeletal: reports: Fatigue Derm: reports: None MRSA Hx?: No - Family & Social History Family History: Mother: , Cancer ( when he was teenager), Father: , Brother: , CAD (had heart surgery) Living arrangement: At home Living Situation: Alone - Substance History Use: Uses substance without health or social issues: NONE Abuse: Recurrent use of substance despite neg consequences: NONE Dependence: Experiences withdrawal or developed tolerances: NONE - POLST Patient has POLST: Yes POLST Status: DNR Meds/Allgy - Home Medications Home Medications: Ambulatory Orders Medication Instructions Recorded Confirmed Multivitamin [Multiple Vitamins] 1 each PO DAILY 01/30/19 01/30/19 Apixaban [Eliquis] 2.5 mg PO BID #60 tablet 01/31/19 Furosemide [Lasix] 40 mg PO DAILY #30 tablet 01/31/19 Spironolactone [Aldactone] 25 mg PO DAILY #30 tablet 01/31/19 carvediloL [Coreg] 6.25 mg PO BID #60 tablet 01/31/19 lisinopriL [Zestril] 5 mg PO DAILY #30 tablet 01/31/19 - Allergies Allergies/Adverse Reactions: Allergies Allergy/AdvReac Type Severity Reaction Status Date / Time shellfish derived Allergy Anaphylaxis Verified 01/20/20 17:21 diltiazem AdvReac Cramps Verified 01/20/20 17:21 Review of Systems - Constitutional Constitutional: reports: Weakness, Poor appetite, Weight gain - Ears, Nose & Throat Ears, Nose & Throat: reports: Postnasal drainage, Hoarseness - Cardiovascular Cariovascular: reports: Lightheadedness, Syncope, Decr. exercise tolerance - Respiratory Respiratory: reports: Cough, SOB at rest, SOB with exertion - Gastrointestinal Gastrointestinal: reports: Change in bowel habits, Nausea, Vomiting, Reflux/heartburn, Bloating, Poor appetite - Genitourinary Genitourinary: reports: Dysuria, Frequency, Urgency, Incontinence - Musculoskeletal Musculoskeletal: reports: Muscle pain, Back pain, Muscle aches, Stiffness, Limited range of motion, Muscle weakness, Joint pain, Joint swelling - Integumentary Integumentary: reports: Dryness, Pigment changes, Hair changes - Neurological Neurological: reports: General weakness, Headache, Dizziness, Memory problems, Pre-existing deficit, Abnormal gait - Psychiatric Psychiatric: reports: Depression, Anxiety, Suicidal, Hallucinations - Endocrine Endocrine: reports: Intolerance to cold - Hematologic/Lymphatic Hematologic/Lymphatic: reports: Recurrent infections - All Other Systems All Other Systems: reports: Reviewed and negative Prior Level of Functionality: Difficulty with walking, recurrent falls, now bed-bound. Exam - Vital Signs Reviewed Vital Signs: Yes Vital Signs: Vital Signs x48h Temp Pulse Resp BP Pulse Ox 01/20/20 18:42 72 18 87/47 L 93 01/20/20 17:15 36.7 C 75 16 93/58 L 99 - Physical Exam General Appearance: positive: Moderate distress, Anxious, Lethargic Eyes Bilateral: positive: No lid inflammation ENT: positive: Pharyngeal erythema, Dry mucous membranes Neck: positive: Stiff neck Respiratory: positive: Chest non-tender, No respiratory distress, Rhonchi Cardiovascular: positive: Irregularly irregular, Tachycardia, Systolic murmur, Diastolic murmur, Gallop/S3, Decreased pulse(s) Peripheral Pulses: positive: 1+ Abdomen: positive: Non-tender, Other (jaundice, bronze toned skin) Back: positive: Nml inspection Skin: positive: No rash, Warm, Dry, Cyanosis, Pallor, Other (jaundice, scleral icterus) Extremities: positive: Non-tender, Pedal edema, Joint swelling Neurologic/Psychiatric: positive: Disoriented to time, Weakness, Sensory loss, Slurred/abnml speech, Depressed mood/affect, Other (baseline dementia) Reflexes: Bicep (R): 2+, Bicep (L): 2+ Conclusion/Plan - Problem List (1) Injury due to suicide attempt Conclusion/Plan: -Patient's son, Fredrick found his father in a pool of blood in his recliner in his trailer -[facility] also claimed the patient acted suicidal, so discharged home Laceration of left wrist -Patient has been intentional with ending his life -His son notes that he did not think his father had any knives in the house, but has lived in the same trailer for the past 10-years -Deep laceration of left wrist, closed by surgeon while in the ED -Evidence of a 1st attempt in the left AC region, but probably could not cut hard enough given reduced range of motion -Now 1:1 observation has been ordered as the patient is a risk to himself -Continue care under the guidance of Dr. Nicole, treat pain End of life care -Fentanyl patch is intact -Hydromorphone IV if needed for breakthrough pain -Comfort care order set -Follow cares under the discretion of Dr. Nicole or the patient's son's wishes Acute on chronic HFrEF (heart failure with reduced ejection fraction) -Last echo from January 2019 showed LV function severely globally impaired with less than 20% EF, Cor Pulmonale, RVSP at rest of 61 mmHg -Patient was given IVFs by EMS -No further treatment, comfort cares Asthma -No further treatment, consider nebulizers for symptom management if needed Core Measures - DVT/VTE - Prophylaxis VTE/DVT Device ordered at admit?: No Not Ordered - Medical Reason: Contraindicated VTE/DVT Prophylaxis med ordered at admit?: No Not Ordered - Medical Reason: Contraindicated - Stroke - Rehab Assessment Rehab services assessment to be ordered?: No Not Ordered - Medical Reason: Contraindicated - AMI - Statin at Admit Aspirin Prescribed on Admit: No Not Ordered - Medical Reason: Contraindicated
[2020-01-20] MEDS ORDERED: HALOPERIDOL 5 MG/ML VIAL IVP PRN (19:37)
[2020-01-21] MEDS ORDERED: fentaNYL 25 MCG PATCH TOP SCH (09:03)
[2020-01-21] MEDS: SCOPOLAMINE PATCH TOP SCH ×2 (09:06→12:31)
[2020-01-21] MEDS: polyethylene glycoL 3350 17 GM PACKET PO SCH (10:33)
[2020-01-21] MEDS ORDERED: ONDANSETRON 4 MG/2 ML VIAL IVP PRN (12:27)
--- NOTE | 2020-01-21 16:18 | PHARMACY PROGRESS NOTE ---
- Best Possible Medication History Admit Date and Time: 01/20/201814 Processed by: Pharmacy Medication History completed: Yes Patient Interview: Pt unable to participate Secondary Source(s): Pharmacy records, Insurance records As the person ultimately responsible for medication therapy, providers are able to order a medication from an existing home medication list in [facility] via the "Reconcile Routine" prior to Confirmation of that medication by intelligence support officer. Such practice is discouraged except when the physician, in their clinical judgment, deems that a medical need exists for a medication without regard to previous use.
--- NOTE | 2020-01-21 17:39 | PROVIDER PROGRESS NOTE ---
Hospitalist Cross-cover Note - Cross-Cover Note Cross-Cover Note: Jackson remains on 1-to-1 sitter for continuous observation given his suicide attempts. New fentanyl patch applied (every 3 days). IV diluadid PRN, Zofran added for nausea today. Copious oral secretions were noted today, scopolomine patch applied, suction set up for comfort. Patient's son was here to visit. Signed: CARSON Mendoza 01/21/2020 @ 3830
[2020-01-22] MEDS ORDERED: fentaNYL 25 MCG PATCH TOP SCH (09:00)
[2020-01-22] MEDS: polyethylene glycoL 3350 17 GM PACKET PO SCH (12:11)
[2020-01-22] MEDS ORDERED: BISACODYL 10 MG SUPP PR ONE (12:49)
[2020-01-22] MEDS ORDERED: SENNA 8.6 MG TABLET PO SCH (13:00)
[2020-01-22] MEDS: HYDROmorphone 1 MG/ML CARPUJECT IVP PRN ×3 (14:01→16:29)
[2020-01-22] MEDS: SODIUM CHLORIDE FLUSH 0.9% 10 ML SYRINGE IVP PRN ×2 (14:01→14:57)
[2020-01-22] MEDS ORDERED: ZINC OXIDE 20% OINT 30 GM TUBE TOP PRN (14:16)
[2020-01-22 16:39] VITALS: BP 102/53
--- NOTE | 2020-01-22 21:47 | DISCHARGE SUMMARY ---
Discharge Summary Admit Date: 01/20/20 Discharge Date: 01/22/20 Discharging Provider: CARSON Mendoza Primary Care Provider: Dr. Nicole Code Status: Do Not Attempt Resuscitation Discharge Disposition: 20 - DIAGNOSES Admission Diagnoses: Injury due to suicide attempt Laceration of left wrist End of life care Acute on chronic HFrEF (heart failure with reduced ejection fraction) Asthma Discharge Diagnoses with Status of Each Condition: Injury due to suicide attempt-resolved Laceration of left wrist-resolved End of life care-resolved Acute on chronic HFrEF (heart failure with reduced ejection fraction)-resolved Asthma-resolved Suicidal ideation-resolved - HPI History of Present Illness: Heriberto Alicea is a 84-year-old white male with a past medical history of asthma, CKD, HFrEF, medical noncompliance and a current Hospice patient under the care of Dr. Nicole. He was recently sent to [facility] for Hospice care, but became suicidal and was discharged from their facility. He was sent back to his trailer which is an inadequate place for him to be as there is no running water. The patients son, Fredrick and [id number], Tracie live across the street from the patient. Fredrick states that he last checked on his father around 11AM, and came back around 3PM when he found his father in a recliner, which surprised him as the patient has not been able to walk that far lately. He notes that he thinks his father was so determined to end his life that, that is the only physical way he could imagine his dad making it that far. When Fredrick reached the chair which was facing away from the front door, he states there was blood every where. The blood had pooled in his lap and was coagulating into a jell. He states it was difficult to see where his father was bleeding from, so he began to hold pressure on both is left wrist and his thigh after calling 911. Upon arrival to the ED, the patient had a tourniquet on his left forearm. There was initially some thought that he may have stabbed himself in the leg, but after further examination, all skin was intact. Dr. Nicole called me directly for a [facility] admission, so the patient has been admitted. - HOSPITAL COURSE Hospital Course: The patient had an uneventful hospital stay, and was treated based on symptoms. His son, Fredrick was updated. The patient remained with 1:1 care based on presenting symptoms of ongoing suicidal ideation. The patient passed peacefully with nursing staff at his bedside as expected. - ALLERGIES Allergies/Adverse Reactions: Allergies Allergy/AdvReac Type Severity Reaction Status Date / Time shellfish derived Allergy Anaphylaxis Verified 01/20/20 17:21 diltiazem AdvReac Cramps Verified 01/20/20 17:21 - MEDICATIONS Home Medications: Ambulatory Orders Medication Instructions Recorded Confirmed Morphine Sulfate [Morphine Sulf 5 mg PO Q4H PRN 01/21/20 01/21/20 Oral (Roxanol)] fentaNYL 12 MCG PATCH [Duragesic 1 patch TOP Q72H 01/21/20 01/21/20 12mcg patch] - PHYSICAL EXAM AT DISCHARGE Physical Exam Other/Comments: No physical exam for this document. - TIME SPENT Time Spent in Discharge (Minutes): 35
--- NOTE | 2020-01-22 21:49 | Discharge Plan ---
Discharge Plan Problem Reviewed?: Yes Disposition: 20 Health Concerns: Time of : 21:14PM No Smoking: If you smoke, Please STOP! Call for help.
[2020-01-22] MEDS ORDERED: SODIUM CHLORIDE FLUSH 0.9% 10 ML SYRINGE IVP SCH (22:00)
== END 2020-01-22 21:14 | disposition expired | DRG 913 ==
LOC: EDUNIT# → EDBD → ED 16:50 → MS2 18:15
PROVIDERS: ADMIT Nurse Practitioner; ATTEND Nurse Practitioner
DX: S65.912A Laceration of unspecified blood vessel at wrist and hand level of left arm, initial encounter (principal); I50.23 Acute on chronic systolic (congestive) heart failure; I13.0 Hypertensive heart and chronic kidney disease with heart failure and stage 1 through stage 4 chronic kidney disease, or unspecified chronic kidney disease; I50.84 End stage heart failure; S61.512A Laceration without foreign body of left wrist, initial encounter; X78.1XXA Intentional self-harm by knife, initial encounter; Y92.029 Unspecified place in mobile home as the place of occurrence of the external cause; I95.9 Hypotension, unspecified; R11.0 Nausea; J45.909 Unspecified asthma, uncomplicated; N18.9 Chronic kidney disease, unspecified; F03.90 Unspecified dementia, unspecified severity, without behavioral disturbance, psychotic disturbance, mood disturbance, and anxiety; F32.9 Major depressive disorder, single episode, unspecified; F41.9 Anxiety disorder, unspecified; I27.81 Cor pulmonale (chronic); Z51.5 Encounter for palliative care; Z66 Do not resuscitate; Z59.1 Inadequate housing; Z91.19 Patient's noncompliance with other medical treatment and regimen; Z79.01 Long term (current) use of anticoagulants; Z79.899 Other long term (current) drug therapy; Z91.81 History of falling; Z74.01 Bed confinement status; Z79.891 Long term (current) use of opiate analgesic
CPT/HCPCS: 12002; 99284; 99285; A9270; J1170; J3490